=== PATIENT | female | born 1935 | race Caucasian/White ===

== ENCOUNTER 2021-10-01 03:11 | Emergency (ER) | payer MEDICARE, BC ==
[2021-10-01 04:33] LABS: #Basophils 0.1 10x3/uL (0.0-0.2); #Eosinphils 0.1 10x3/uL (0.0-0.5); #Monocytes 0.6 10x3/uL (0.0-1.1); #Neutrophils 4.4 10x3/uL (1.5-8.4); %Basophils 0.8 % (0.0-2.0); %Lymphocytes 19.7 % (18.0-47.0); %Monocytes 8.5 % (0.0-10.0); %Neutrophils 68.7 % (40.0-75.0); Hemoglobin 9.9 g/dL (12.0-15.5); Mean Corpuscular HGB CONC 29.6 g/dL (32.0-36.0); Mean Corpuscular Hemoglobin 24.1 pg (27.0-33.0); Mean Corpuscular Volume 81.3 fl (81.6-98.3); Platelet Count 226 10x3/uL (150-450); RBC Distribution Width 17.3 % (11.5-14.5); Red Blood Cell (RBC) Count 4.11 10x6/uL (3.90-5.03); White Blood Cell (WBC) Count 6.5 10x3/uL (3.5-10.5)
[2021-10-01 04:48] LABS: Elliptocytes SLIGHT = 2-5 cells (100X) (0-1/hpf); Platelet Morphology Comment Appears Adequate; Tear Drops SLIGHT = 2-5 cells (100X) (0-1/hpf)
[2021-10-01 05:01] LABS: ALT (SGPT) 6 U/L (8-55); AST (SGOT) 16 U/L (5-34); Albumin 3.7 g/dL (3.4-4.8); Alkaline Phosphatase 91 U/L (40-110); Anion Gap 13 mmol/L (10-20); BUN (Urea Nitrogen) 14 mg/dL (9.8-20.1); Bilirubin, Total 0.6 mg/dL (0.2-1.2); Calc. Creatinine Clearance 0 mL/min (70-130); Calcium 9.2 mg/dL (7.8-10.44); Carbon Dioxide 26 mmol/L (23-31); Chloride 105 mmol/L (98-107); Globulin 3.5 g/dL (2.4-3.5); Glucose 112 mg/dL (83-110); Potassium 3.6 mmol/L (3.5-5.1); Protein, Total 7.2 g/dL (5.8-8.1); Sodium 140 mmol/L (136-145)
[2021-10-01] MEDS ORDERED: cefTRIAXone\\ROCEPHIN 1 GM VIAL ONE (05:24)
[2021-10-01 16:08] LABS: SARS-CoV-2 PCR by NAA Not Detected (NotDetected)
== END 2021-10-01 07:09 | disposition home or self-care (01) ==
LOC: CSHERS 03:11
DX: J18.9 Pneumonia, unspecified organism (principal); Z20.822 Contact with and (suspected) exposure to COVID-19; I25.10 Atherosclerotic heart disease of native coronary artery without angina pectoris; I25.2 Old myocardial infarction; K21.9 Gastro-esophageal reflux disease without esophagitis; E78.5 Hyperlipidemia, unspecified; I10 Essential (primary) hypertension; J44.9 Chronic obstructive pulmonary disease, unspecified; F17.210 Nicotine dependence, cigarettes, uncomplicated
CPT/HCPCS: 70450; 71045; 80053; 83880; 84484; 85025; 93005; U0003; U0005; 96365; J0696

== ENCOUNTER 2021-10-04 03:56 | Inpatient (IN) | payer MEDICARE, BC ==
[2021-10-04] MEDS ORDERED: methylPREDNISolone Sod Succ/PF 125 MG/2 ML VIAL ONE (04:21)
[2021-10-04] MEDS ORDERED: Nitroglycerin 2% Ointment 1 INCH/1 GM Packet ONE (04:21)
[2021-10-04 04:41] LABS: Actual Bicarbonate (HCO3v) 26 mEq/L (22-28); Base Excess -0.6 mEq/L (-2.0 to +3.0); Calcium, Ionized (venous) 1.13 mmol/L (1.16-1.32); Chloride (VBG) 103 mmol/L (98-106); Hemoglobin (Hb) 10.6 g/dL (11.7-16.1); Puncture Site Other Site; RapidComm Collect By CSUC.CNC; Sodium 138.1 mmol/L (133-146); pH (venous) 7.32 (7.32-7.43)
[2021-10-04 05:05] LABS: ALT (SGPT) 7 U/L (8-55); AST (SGOT) 14 U/L (5-34); Albumin 3.5 g/dL (3.4-4.8); Alkaline Phosphatase 88 U/L (40-110); Anion Gap 12 mmol/L (10-20); BUN (Urea Nitrogen) 15 mg/dL (9.8-20.1); Bilirubin, Total 0.4 mg/dL (0.2-1.2); Calc. Creatinine Clearance 0 mL/min (70-130); Calcium 8.8 mg/dL (7.8-10.44); Carbon Dioxide 27 mmol/L (23-31); Chloride 105 mmol/L (98-107); Globulin 3.3 g/dL (2.4-3.5); Glucose 111 mg/dL (83-110); Potassium 3.5 mmol/L (3.5-5.1); Protein, Total 6.8 g/dL (5.8-8.1); Sodium 140 mmol/L (136-145)
[2021-10-04 05:13] LABS: #Basophils 0.1 10x3/uL (0.0-0.2); #Eosinphils 0.2 10x3/uL (0.0-0.5); #Monocytes 0.6 10x3/uL (0.0-1.1); #Neutrophils 4.2 10x3/uL (1.5-8.4); %Basophils 0.8 % (0.0-2.0); %Eosinophils 3.2 % (0.0-6.0); %Lymphocytes 17.9 % (18.0-47.0); %Monocytes 9.9 % (0.0-10.0); %Neutrophils 67.9 % (40.0-75.0); Hemoglobin 9.5 g/dL (12.0-15.5); Mean Corpuscular HGB CONC 29.4 g/dL (32.0-36.0); Mean Corpuscular Hemoglobin 24.4 pg (27.0-33.0); Mean Platelet Volume 10.8 fl (7.4-10.4); Platelet Count 237 10x3/uL (150-450); RBC Distribution Width 17.5 % (11.5-14.5); Red Blood Cell (RBC) Count 3.89 10x6/uL (3.90-5.03); White Blood Cell (WBC) Count 6.2 10x3/uL (3.5-10.5)
[2021-10-04] MEDS ORDERED: Furosemide 40 MG/4 ML VIAL ONE (06:02)
[2021-10-04 07:08] LABS: SARS-CoV-2 NAA Rapid Test Not Detected (NotDetected)
[2021-10-04] MEDS ORDERED: Acetaminophen 650 MG Suppository PR PRN (08:54)
[2021-10-04] MEDS ORDERED: Bisacodyl 5 MG TAB PO PRN (08:54)
[2021-10-04] MEDS ORDERED: Ondansetron ODT 4 MG TAB PO PRN (08:54)
[2021-10-04] MEDS ORDERED: Loperamide HCl 2 MG CAP PO PRN ×2 (08:54)
[2021-10-04] MEDS ORDERED: Bisacodyl 10 MG SUPP PR PRN (08:54)
[2021-10-04] MEDS ORDERED: Ondansetron PF 4 MG/2 ML Vial IVP PRN (08:54)
[2021-10-04] MEDS ORDERED: Acetaminophen 325 MG TAB PO PRN (08:54)
[2021-10-04] MEDS ORDERED: Enoxaparin Sodium 30 MG/0.3 ML SYRINGE SC SCH (12:00)
[2021-10-04] MEDS ORDERED: Enoxaparin Sodium 30 MG/0.3 ML SYRINGE ONE (12:15)
[2021-10-04] MEDS ORDERED: Piperacillin/Tazobactam 3.375 GM in Sodium Chloride 0.9% 100 ML IVPB SCH (12:15)
[2021-10-04] MEDS: Famotidine/PF 20 mg/2ml Vial SLOW IVP SCH (12:22)
[2021-10-04] MEDS: Furosemide 40 MG/4 ML VIAL SLOW IVP SCH (14:51)
[2021-10-04] MEDS: Piperacillin/Tazobactam 3.375 GM in Sodium Chloride 0.9% 100 ML IVPB SCH (15:42)
[2021-10-04 16:30] LABS: Legionella Urinary Ag Negative (Negative); Strep pneumo Urine Ag NEGATIVE (NEGATIVE)
[2021-10-04] MEDS: HYDROcodone/Acetaminophen 5/325 mg Tablet PO PRN (18:51)
[2021-10-04] MEDS: Atorvastatin Calcium 40 MG TAB PO SCH (20:21)
[2021-10-04] MEDS: Aspirin 81 mg Enteric Coated Tablet PO SCH (20:21)
[2021-10-05] MEDS: Piperacillin/Tazobactam 3.375 GM in Sodium Chloride 0.9% 100 ML IVPB SCH ×3 (00:15→16:18)
[2021-10-05] MEDS: HYDROcodone/Acetaminophen 5/325 mg Tablet PO PRN ×3 (00:15→14:24)
[2021-10-05 05:01] LABS: Anion Gap 15 mmol/L (10-20); BUN (Urea Nitrogen) 19 mg/dL (9.8-20.1); Calc. Creatinine Clearance 21 mL/min (70-130); Carbon Dioxide 29 mmol/L (23-31); Chloride 98 mmol/L (98-107); Sodium 139 mmol/L (136-145)
[2021-10-05 05:02] LABS: ALT (SGPT) Less than 6 U/L (8-55); AST (SGOT) 13 U/L (5-34); Albumin 3.4 g/dL (3.4-4.8); Alkaline Phosphatase 84 U/L (40-110); Bilirubin, Total 0.6 mg/dL (0.2-1.2); Calcium 8.9 mg/dL (7.8-10.44); Globulin 3.7 g/dL (2.4-3.5); Glucose 93 mg/dL (83-110); Protein, Total 7.1 g/dL (5.8-8.1)
[2021-10-05] MEDS: Furosemide 40 MG/4 ML VIAL SLOW IVP SCH ×2 (05:12→14:25)
[2021-10-05 05:22] LABS: #Neutrophils 6.2 10x3/uL (1.5-8.4); %Basophils 0.3 % (0.0-2.0); %Eosinophils 0.1 % (0.0-6.0); %Lymphocytes 15.6 % (18.0-47.0); %Monocytes 11.4 % (0.0-10.0); %Neutrophils 72.3 % (40.0-75.0); Hemoglobin 9.5 g/dL (12.0-15.5); Mean Corpuscular HGB CONC 30.4 g/dL (32.0-36.0); Mean Corpuscular Hemoglobin 24.6 pg (27.0-33.0); Mean Corpuscular Volume 80.8 fl (81.6-98.3); Mean Platelet Volume 11.1 fl (7.4-10.4); Platelet Count 262 10x3/uL (150-450); RBC Distribution Width 17.2 % (11.5-14.5); Red Blood Cell (RBC) Count 3.86 10x6/uL (3.90-5.03); White Blood Cell (WBC) Count 8.6 10x3/uL (3.5-10.5)
[2021-10-05] MEDS ORDERED: Potassium Chloride 20 MEQ TAB PO SCH (06:15)
[2021-10-05] MEDS ORDERED: methylPREDNISolone Sod Succ/PF 40 MG in Sodium Chloride 0.9% 250 ML 250 ML IVPB SCH (09:00)
[2021-10-05] MEDS: methylPREDNISolone Sod Succ 40 MG VIAL IVP SCH (09:42)
[2021-10-05] MEDS ORDERED: Lidocaine 1% PF 5 ML VIAL ONE ×2 (10:37→11:16)
[2021-10-05] MEDS ORDERED: Sodium Bicarbonate 2.5 MEQ/5 ML VIAL ONE (10:38)
[2021-10-05] MEDS: Famotidine/PF 20 mg/2ml Vial SLOW IVP SCH (11:28)
[2021-10-05] MEDS: Cholecalciferol 1,000 UNITS (25 MCG) TAB PO SCH (11:29)
[2021-10-05] MEDS: Cyanocobalamin (Vitamin B-12) 1,000 MCG TAB PO SCH (11:29)
[2021-10-05 11:34] LABS: Fluid, pH - Pleural Fld 7.38 (7.60 - 7.66)
[2021-10-05] MEDS: Ipratropium Bromide 2.5 ml Neb NEB SCH ×2 (12:34→18:04)
[2021-10-05 13:18] LABS: Body Fluid Source Thoracentesis Fluid; Tube # EDTA
[2021-10-05 13:20] LABS: BF Color Yellow; Clarity Hazy (Clear)
[2021-10-05 15:08] LABS: BF Segmented Neutrophils 35 %; Cell Count Non Hematic 20 %; Lymphocytes 45 %
[2021-10-05 19:55] LABS: Pleural Fluid, Protein 3.8 g/dL
[2021-10-05] MEDS: Aspirin 81 mg Enteric Coated Tablet PO SCH (20:40)
[2021-10-05] MEDS: Atorvastatin Calcium 40 MG TAB PO SCH (20:41)
[2021-10-05] MEDS ORDERED: Haloperidol Lactate 5 MG/ML VIAL IM SCH (21:45)
[2021-10-05 22:29] LABS: Actual Bicarbonate (HCO3a) 30.9 mEq/L (22-28); Base Excess (BEa) 6.4 mEq/L (-2.0 to +3.0); CO2 Tension 43.8 mmHg (35.0-45.0); Calcium, Ionized (arterial) 1.13 mmol/L (1.12-1.30); Carboxyhemoglobin (COHb) 0.5 gm% (0.0-3.0); Hemoglobin (Hb) 11.3 g/dL (12.0-16.0); O2 Tension (PaO2), arterial 59.1 mmHg (> 60.0); Potassium - ABG Lab 4.2 mmol/L (3.70-5.30); Puncture Site RBA; pH, Arterial 7.47 (7.35-7.45)
[2021-10-06] MEDS: Piperacillin/Tazobactam 3.375 GM in Sodium Chloride 0.9% 100 ML IVPB SCH ×2 (00:19→07:48)
[2021-10-06] MEDS: HYDROcodone/Acetaminophen 5/325 mg Tablet PO PRN ×3 (02:03→14:09)
[2021-10-06] MEDS: Ipratropium Bromide 2.5 ml Neb NEB SCH ×3 (02:31→14:11)
[2021-10-06 04:14] VITALS: BMI 21.9
[2021-10-06 05:02] LABS: ALT (SGPT) Less than 6 U/L (8-55); AST (SGOT) 15 U/L (5-34); Albumin 3.2 g/dL (3.4-4.8); Alkaline Phosphatase 74 U/L (40-110); Anion Gap 15 mmol/L (10-20); BUN (Urea Nitrogen) 31 mg/dL (9.8-20.1); Bilirubin, Total 0.4 mg/dL (0.2-1.2); Calc. Creatinine Clearance 21 mL/min (70-130); Calcium 8.6 mg/dL (7.8-10.44); Carbon Dioxide 30 mmol/L (23-31); Chloride 98 mmol/L (98-107); Globulin 3.4 g/dL (2.4-3.5); Glucose 90 mg/dL (83-110); Potassium 3.7 mmol/L (3.5-5.1); Protein, Total 6.6 g/dL (5.8-8.1); Sodium 139 mmol/L (136-145)
[2021-10-06 05:52] LABS: #Monocytes 0.8 10x3/uL (0.0-1.1); #Neutrophils 5.4 10x3/uL (1.5-8.4); %Basophils 0.3 % (0.0-2.0); %Eosinophils 0.1 % (0.0-6.0); %Lymphocytes 15.9 % (18.0-47.0); %Monocytes 11.2 % (0.0-10.0); %Neutrophils 72.2 % (40.0-75.0); Hemoglobin 9.2 g/dL (12.0-15.5); Mean Corpuscular HGB CONC 29.9 g/dL (32.0-36.0); Mean Corpuscular Hemoglobin 24.3 pg (27.0-33.0); Mean Corpuscular Volume 81.5 fl (81.6-98.3); Mean Platelet Volume 11.6 fl (7.4-10.4); Platelet Count 283 10x3/uL (150-450); Red Blood Cell (RBC) Count 3.78 10x6/uL (3.90-5.03); White Blood Cell (WBC) Count 7.4 10x3/uL (3.5-10.5)
[2021-10-06] MEDS: Furosemide 40 MG/4 ML VIAL SLOW IVP SCH ×2 (06:26→14:10)
[2021-10-06] MEDS: methylPREDNISolone Sod Succ 40 MG VIAL IVP SCH (07:47)
[2021-10-06] MEDS: Cholecalciferol 1,000 UNITS (25 MCG) TAB PO SCH (12:16)
[2021-10-06] MEDS: Cyanocobalamin (Vitamin B-12) 1,000 MCG TAB PO SCH (12:16)
[2021-10-06] MEDS: Famotidine/PF 20 mg/2ml Vial SLOW IVP SCH (12:16)
[2021-10-06 17:25] VITALS: BP 155/81; TEMP 97.1
[2021-10-06] MEDS ORDERED: Piperacillin/Tazobactam 3.375 GM in Sodium Chloride 0.9% 100 ML IVPB SCH (20:00)
== END 2021-10-06 16:28 | disposition home or self-care (01) | DRG 180 ==
LOC: SUATTDRO 03:56 → CSHERS 03:56 → CSHICU 11:02
PROVIDERS: ADMIT Family Medicine; ATTEND Family Medicine
PROC: 5A09357 Assistance with Respiratory Ventilation, Less than 24 Consecutive Hours, Continuous Positive Airway Pressure (ICD-10-PCS; 2021-10-04)
PROC: 0W9930Z Drainage of Right Pleural Cavity with Drainage Device, Percutaneous Approach (ICD-10-PCS; principal; 2021-10-05)
DX: C34.2 Malignant neoplasm of middle lobe, bronchus or lung (principal); J96.01 Acute respiratory failure with hypoxia; J91.0 Malignant pleural effusion; I50.32 Chronic diastolic (congestive) heart failure; J44.1 Chronic obstructive pulmonary disease with (acute) exacerbation; I25.10 Atherosclerotic heart disease of native coronary artery without angina pectoris; K21.9 Gastro-esophageal reflux disease without esophagitis; E78.5 Hyperlipidemia, unspecified; Z66 Do not resuscitate; I11.0 Hypertensive heart disease with heart failure; M81.0 Age-related osteoporosis without current pathological fracture; M06.9 Rheumatoid arthritis, unspecified; J44.9 Chronic obstructive pulmonary disease, unspecified; Z88.0 Allergy status to penicillin; Z88.8 Allergy status to other drugs, medicaments and biological substances; Z79.899 Other long term (current) drug therapy; Z90.49 Acquired absence of other specified parts of digestive tract; I25.2 Old myocardial infarction; Z95.5 Presence of coronary angioplasty implant and graft; Z90.710 Acquired absence of both cervix and uterus; Z79.82 Long term (current) use of aspirin; Z98.42 Cataract extraction status, left eye; Z98.41 Cataract extraction status, right eye
CPT/HCPCS: 32555; 36415; 36600; 71045; 71250; 80053; 82150; 82465; 82805; 82945; 83605; 83615; 83880; 84145; 84157; 84484; 85025; 87070; 87116; 87205; 87206; 87449; 87899; 88112; 88305; 88341; 88342; 89051; 93005; 93306; 94640; 94660; 94760; 94799; J1630; J1650; J1940; J2543; J2920; J2930; J3490; J7620; S0028; U0002

== ENCOUNTER 2021-10-26 16:24 | Inpatient (IN) | payer MEDICARE, BC ==
[2021-10-26 17:53] LABS: #Eosinphils 0.1 10x3/uL (0.0-0.5); #Monocytes 0.4 10x3/uL (0.0-1.1); #Neutrophils 3.9 10x3/uL (1.5-8.4); %Basophils 0.7 % (0.0-2.0); %Eosinophils 1.6 % (0.0-6.0); %Lymphocytes 19.9 % (18.0-47.0); %Monocytes 7.3 % (0.0-10.0); %Neutrophils 70.3 % (40.0-75.0); Hemoglobin 10.3 g/dL (12.0-15.5); Mean Corpuscular HGB CONC 29.3 g/dL (32.0-36.0); Mean Corpuscular Hemoglobin 25.2 pg (27.0-33.0); Mean Corpuscular Volume 86.1 fl (81.6-98.3); Platelet Count 158 10x3/uL (150-450); RBC Distribution Width 16.6 % (11.5-14.5); Red Blood Cell (RBC) Count 4.09 10x6/uL (3.90-5.03); White Blood Cell (WBC) Count 5.5 10x3/uL (3.5-10.5)
[2021-10-26 17:55] LABS: ALT (SGPT) 17 U/L (8-55); AST (SGOT) 23 U/L (5-34); Albumin 3.1 g/dL (3.4-4.8); Alkaline Phosphatase 136 U/L (40-110); Anion Gap 14 mmol/L (10-20); BUN (Urea Nitrogen) 9 mg/dL (9.8-20.1); Bilirubin, Total 0.5 mg/dL (0.2-1.2); Calc. Creatinine Clearance 0 mL/min (70-130); Calcium 8.7 mg/dL (7.8-10.44); Carbon Dioxide 26 mmol/L (23-31); Chloride 104 mmol/L (98-107); Globulin 3.1 g/dL (2.4-3.5); Glucose 127 mg/dL (83-110); Potassium 4.1 mmol/L (3.5-5.1); Protein, Total 6.2 g/dL (5.8-8.1); Sodium 140 mmol/L (136-145)
[2021-10-26] MEDS ORDERED: Furosemide 40 MG/4 ML VIAL ONE (18:27)
[2021-10-26] MEDS ORDERED: Furosemide 100 MG/10 ML VIAL ONE (18:29)
[2021-10-26 19:07] LABS: Anisocytosis SLIGHT = 6-15 cells (100X) (0-5/hpf); Hypochromia SLIGHT = 6-15 cells (100X) (0-5/hpf); Ovalocytes SLIGHT = 2-5 cells (100X) (0-1/hpf); Stomatocytes SLIGHT = 2-5 cells (100X) (0-1/hpf)
[2021-10-26 19:08] LABS: Platelet Morphology Comment Appears Adequate
[2021-10-26 19:10] LABS: SARS-CoV-2 NAA Rapid Test Not Detected (NotDetected)
[2021-10-26] MEDS ORDERED: Nitroglycerin 2% Ointment 1 INCH/1 GM Packet ONE (19:15)
[2021-10-26] MEDS ORDERED: Ventolin HFA Inhaler 60 PUFF INHALER INH PRN (19:55)
[2021-10-26] MEDS ORDERED: Ipratropium Oral Inhaler INH PRN (19:55)
[2021-10-26] MEDS ORDERED: Acetaminophen 325 MG TAB PO PRN (19:56)
[2021-10-26] MEDS ORDERED: Ondansetron PF 4 MG/2 ML Vial IVP PRN (19:56)
[2021-10-26] MEDS ORDERED: Ondansetron ODT 4 MG TAB PO PRN (19:56)
[2021-10-26] MEDS ORDERED: HYDROcodone/Acetaminophen 5/325 mg Tablet ONE (20:11)
[2021-10-26] MEDS: Aspirin 81 mg Enteric Coated Tablet PO SCH (22:24)
[2021-10-26] MEDS: Atorvastatin Calcium 40 MG TAB PO SCH ×2 (22:24→22:28)
[2021-10-27] MEDS: Ipratropium Bromide 2.5 ml Neb NEB SCH ×4 (00:33→18:51)
[2021-10-27] MEDS: HYDROcodone/Acetaminophen 5/325 mg Tablet PO PRN ×2 (03:10→17:03)
[2021-10-27 05:34] LABS: #Monocytes 0.1 10x3/uL (0.0-1.1); #Neutrophils 2.7 10x3/uL (1.5-8.4); %Lymphocytes 12.7 % (18.0-47.0); %Monocytes 3.7 % (0.0-10.0); %Neutrophils 83.3 % (40.0-75.0); Hemoglobin 9.8 g/dL (12.0-15.5); Mean Corpuscular HGB CONC 29.4 g/dL (32.0-36.0); Mean Corpuscular Hemoglobin 24.9 pg (27.0-33.0); Mean Corpuscular Volume 84.5 fl (81.6-98.3); Mean Platelet Volume 12.2 fl (7.4-10.4); Platelet Count 158 10x3/uL (150-450); RBC Distribution Width 16.2 % (11.5-14.5); Red Blood Cell (RBC) Count 3.94 10x6/uL (3.90-5.03); White Blood Cell (WBC) Count 3.2 10x3/uL (3.5-10.5)
[2021-10-27 05:36] LABS: ALT (SGPT) 14 U/L (8-55); AST (SGOT) 17 U/L (5-34); Albumin 3.1 g/dL (3.4-4.8); Alkaline Phosphatase 127 U/L (40-110); Anion Gap 13 mmol/L (10-20); BUN (Urea Nitrogen) 12 mg/dL (9.8-20.1); Bilirubin, Total 0.4 mg/dL (0.2-1.2); Calc. Creatinine Clearance 26 mL/min (70-130); Calcium 8.8 mg/dL (7.8-10.44); Carbon Dioxide 30 mmol/L (23-31); Chloride 97 mmol/L (98-107); Globulin 3.3 g/dL (2.4-3.5); Glucose 148 mg/dL (83-110); Magnesium 1.7 mg/dL (1.6-2.6); Potassium 3.1 mmol/L (3.5-5.1); Protein, Total 6.4 g/dL (5.8-8.1); Sodium 137 mmol/L (136-145)
[2021-10-27 06:15] LABS: Troponin I 0.012 ng/mL (< 0.028)
[2021-10-27] MEDS ORDERED: Potassium Chloride 20 MEQ TAB PO SCH ×2 (07:00→13:00)
[2021-10-27 07:02] LABS: Anisocytosis SLIGHT = 6-15 cells (100X) (0-5/hpf); Hypochromia SLIGHT = 6-15 cells (100X) (0-5/hpf)
[2021-10-27] MEDS ORDERED: predniSONE 20 MG TAB PO SCH (08:00)
[2021-10-27] MEDS ORDERED: Enoxaparin Sodium 40 MG/0.4 ML SYRINGE SC SCH (09:00)
[2021-10-27] MEDS: Cyanocobalamin (Vitamin B-12) 1,000 MCG TAB PO SCH (11:55)
[2021-10-27] MEDS: Cholecalciferol 1,000 UNITS (25 MCG) TAB PO SCH (11:55)
[2021-10-27] MEDS: Magnesium 2 GM/50 ML 2 GM in Premix Bag 1 BAG IVPB SCH ×5 (13:11→21:25)
[2021-10-27] MEDS ORDERED: Furosemide 40 MG/4 ML VIAL SLOW IVP SCH (17:00)
[2021-10-27] MEDS: Aspirin 81 mg Enteric Coated Tablet PO SCH (20:07)
[2021-10-27] MEDS: Atorvastatin Calcium 40 MG TAB PO SCH (20:08)
[2021-10-27] MEDS ORDERED: Famotidine 20 MG TAB PO SCH ×2 (21:00)
[2021-10-28] MEDS: Ipratropium Bromide 2.5 ml Neb NEB SCH ×4 (00:18→18:57)
[2021-10-28 05:16] LABS: #Monocytes 0.5 10x3/uL (0.0-1.1); #Neutrophils 7.6 10x3/uL (1.5-8.4); %Basophils 0.1 % (0.0-2.0); %Lymphocytes 10.9 % (18.0-47.0); %Monocytes 5.4 % (0.0-10.0); %Neutrophils 83.3 % (40.0-75.0); Hemoglobin 11.1 g/dL (12.0-15.5); Mean Corpuscular HGB CONC 30.2 g/dL (32.0-36.0); Mean Corpuscular Hemoglobin 24.9 pg (27.0-33.0); Mean Corpuscular Volume 82.7 fl (81.6-98.3); Mean Platelet Volume 11.7 fl (7.4-10.4); Platelet Count 167 10x3/uL (150-450); RBC Distribution Width 17.1 % (11.5-14.5); Red Blood Cell (RBC) Count 4.45 10x6/uL (3.90-5.03); White Blood Cell (WBC) Count 9.1 10x3/uL (3.5-10.5)
[2021-10-28 07:16] LABS: Anion Gap 16 mmol/L (10-20); BUN (Urea Nitrogen) 19 mg/dL (9.8-20.1); Calc. Creatinine Clearance 24 mL/min (70-130); Carbon Dioxide 30 mmol/L (23-31); Chloride 99 mmol/L (98-107); Glucose 109 mg/dL (83-110); Magnesium 3.1 mg/dL (1.6-2.6); Potassium 5.1 mmol/L (3.5-5.1); Sodium 140 mmol/L (136-145)
[2021-10-28] MEDS ORDERED: hydrALAZINE 20 MG/ML VIAL SLOW IVP PRN (08:41)
[2021-10-28] MEDS: Enoxaparin Sodium 30 MG/0.3 ML SYRINGE SC SCH (09:16)
[2021-10-28] MEDS: Cholecalciferol 1,000 UNITS (25 MCG) TAB PO SCH (13:10)
[2021-10-28] MEDS: Cyanocobalamin (Vitamin B-12) 1,000 MCG TAB PO SCH (13:10)
[2021-10-28] MEDS ORDERED: Furosemide 40 MG/4 ML VIAL SLOW IVP SCH (16:00)
[2021-10-28] MEDS: HYDROcodone/Acetaminophen 5/325 mg Tablet PO PRN (19:34)
[2021-10-28] MEDS ORDERED: Bismuth Subs 17.5 mg/mL Susp PO SCH (21:15)
[2021-10-28] MEDS ORDERED: Pepto Bismol Chew TAB PO SCH (21:30)
[2021-10-28] MEDS: Atorvastatin Calcium 40 MG TAB PO SCH (22:16)
[2021-10-28] MEDS: Aspirin 81 mg Enteric Coated Tablet PO SCH (22:18)
[2021-10-29] MEDS: Ipratropium Bromide 2.5 ml Neb NEB SCH ×4 (00:38→18:40)
[2021-10-29 04:07] LABS: #Eosinphils 0.1 10x3/uL (0.0-0.5); #Monocytes 0.4 10x3/uL (0.0-1.1); #Neutrophils 3.7 10x3/uL (1.5-8.4); %Basophils 0.2 % (0.0-2.0); %Eosinophils 1.8 % (0.0-6.0); %Lymphocytes 19.1 % (18.0-47.0); %Monocytes 7.6 % (0.0-10.0); %Neutrophils 71.1 % (40.0-75.0); Hemoglobin 10.1 g/dL (12.0-15.5); Mean Corpuscular HGB CONC 30.1 g/dL (32.0-36.0); Mean Corpuscular Hemoglobin 25.1 pg (27.0-33.0); Mean Corpuscular Volume 83.6 fl (81.6-98.3); Mean Platelet Volume 11.1 fl (7.4-10.4); Platelet Count 160 10x3/uL (150-450); RBC Distribution Width 17.1 % (11.5-14.5); Red Blood Cell (RBC) Count 4.02 10x6/uL (3.90-5.03); White Blood Cell (WBC) Count 5.1 10x3/uL (3.5-10.5)
[2021-10-29 04:23] LABS: Anion Gap 15 mmol/L (10-20); BUN (Urea Nitrogen) 23 mg/dL (9.8-20.1); Calc. Creatinine Clearance 24 mL/min (70-130); Calcium 8.7 mg/dL (7.8-10.44); Carbon Dioxide 31 mmol/L (23-31); Chloride 96 mmol/L (98-107); Glucose 101 mg/dL (83-110); Magnesium 2.4 mg/dL (1.6-2.6); Phosphorus 4.2 mg/dL (2.3-4.7); Potassium 3.7 mmol/L (3.5-5.1); Sodium 138 mmol/L (136-145)
[2021-10-29] MEDS: HYDROcodone/Acetaminophen 5/325 mg Tablet PO PRN ×2 (05:49→14:10)
[2021-10-29] MEDS: Enoxaparin Sodium 30 MG/0.3 ML SYRINGE SC SCH (08:15)
[2021-10-29] MEDS: Amlodipine 5 MG TAB PO SCH (08:16)
[2021-10-29] MEDS: Furosemide 40 MG TAB PO SCH (08:18)
[2021-10-29] MEDS: Potassium Chloride 20 MEQ TAB PO SCH (08:19)
[2021-10-29] MEDS: Cholecalciferol 1,000 UNITS (25 MCG) TAB PO SCH (14:04)
[2021-10-29] MEDS: Cyanocobalamin (Vitamin B-12) 1,000 MCG TAB PO SCH (14:06)
[2021-10-29] MEDS: Atorvastatin Calcium 40 MG TAB PO SCH (21:34)
[2021-10-29] MEDS: Aspirin 81 mg Enteric Coated Tablet PO SCH (21:35)
[2021-10-30] MEDS: Ipratropium Bromide 2.5 ml Neb NEB SCH ×4 (01:00→18:57)
[2021-10-30 04:04] LABS: #Eosinphils 0.2 10x3/uL (0.0-0.5); #Monocytes 0.4 10x3/uL (0.0-1.1); #Neutrophils 2.6 10x3/uL (1.5-8.4); %Basophils 0.7 % (0.0-2.0); %Eosinophils 3.3 % (0.0-6.0); %Lymphocytes 31.2 % (18.0-47.0); %Neutrophils 56.6 % (40.0-75.0); Hemoglobin 10.3 g/dL (12.0-15.5); Mean Corpuscular HGB CONC 29.3 g/dL (32.0-36.0); Mean Corpuscular Hemoglobin 25.2 pg (27.0-33.0); Mean Platelet Volume 11.1 fl (7.4-10.4); Platelet Count 172 10x3/uL (150-450); RBC Distribution Width 16.8 % (11.5-14.5); Red Blood Cell (RBC) Count 4.08 10x6/uL (3.90-5.03); White Blood Cell (WBC) Count 4.6 10x3/uL (3.5-10.5)
[2021-10-30 04:09] LABS: Anion Gap 13 mmol/L (10-20); BUN (Urea Nitrogen) 22 mg/dL (9.8-20.1); Calc. Creatinine Clearance 22 mL/min (70-130); Calcium 8.7 mg/dL (7.8-10.44); Carbon Dioxide 33 mmol/L (23-31); Chloride 96 mmol/L (98-107); Glucose 94 mg/dL (83-110); Magnesium 2.2 mg/dL (1.6-2.6); Phosphorus 4.8 mg/dL (2.3-4.7); Potassium 3.9 mmol/L (3.5-5.1); Sodium 138 mmol/L (136-145)
[2021-10-30 04:35] LABS: Platelet Morphology Comment Appears Adequate; RBC Morphology Normal
[2021-10-30] MEDS: Furosemide 40 MG TAB PO SCH (06:43)
[2021-10-30] MEDS ORDERED: Enoxaparin Sodium 30 MG/0.3 ML SYRINGE ONE (08:22)
[2021-10-30] MEDS: Amlodipine 5 MG TAB PO SCH (08:30)
[2021-10-30] MEDS: Potassium Chloride 20 MEQ TAB PO SCH (08:31)
[2021-10-30] MEDS: HYDROcodone/Acetaminophen 5/325 mg Tablet PO PRN ×3 (08:32→21:49)
[2021-10-30] MEDS: Enoxaparin Sodium 30 MG/0.3 ML SYRINGE SC SCH (08:32)
[2021-10-30] MEDS: Cyanocobalamin (Vitamin B-12) 1,000 MCG TAB PO SCH (13:31)
[2021-10-30] MEDS: Cholecalciferol 1,000 UNITS (25 MCG) TAB PO SCH (13:32)
[2021-10-30] MEDS: Atorvastatin Calcium 40 MG TAB PO SCH (21:42)
[2021-10-30] MEDS: Aspirin 81 mg Enteric Coated Tablet PO SCH (21:42)
[2021-10-31] MEDS: Ipratropium Bromide 2.5 ml Neb NEB SCH ×2 (01:00→07:53)
[2021-10-31 04:51] LABS: #Eosinphils 0.2 10x3/uL (0.0-0.5); #Monocytes 0.6 10x3/uL (0.0-1.1); #Neutrophils 2.7 10x3/uL (1.5-8.4); %Basophils 0.4 % (0.0-2.0); %Eosinophils 3.4 % (0.0-6.0); %Lymphocytes 30.7 % (18.0-47.0); %Monocytes 11.2 % (0.0-10.0); %Neutrophils 54.1 % (40.0-75.0); Hemoglobin 9.2 g/dL (12.0-15.5); Mean Corpuscular HGB CONC 28.5 g/dL (32.0-36.0); Mean Corpuscular Hemoglobin 24.9 pg (27.0-33.0); Mean Corpuscular Volume 87.5 fl (81.6-98.3); Mean Platelet Volume 11.3 fl (7.4-10.4); Platelet Count 168 10x3/uL (150-450); RBC Distribution Width 16.6 % (11.5-14.5); Red Blood Cell (RBC) Count 3.69 10x6/uL (3.90-5.03)
[2021-10-31 05:03] LABS: Anion Gap 10 mmol/L (10-20); BUN (Urea Nitrogen) 23 mg/dL (9.8-20.1); Calc. Creatinine Clearance 20 mL/min (70-130); Calcium 8.6 mg/dL (7.8-10.44); Carbon Dioxide 34 mmol/L (23-31); Chloride 97 mmol/L (98-107); Glucose 93 mg/dL (83-110); Phosphorus 3.9 mg/dL (2.3-4.7); Potassium 4.2 mmol/L (3.5-5.1); Sodium 137 mmol/L (136-145)
[2021-10-31 05:33] LABS: Elliptocytes SLIGHT = 2-5 cells (100X) (0-1/hpf); Hypochromia SLIGHT = 6-15 cells (100X) (0-5/hpf); Platelet Morphology Comment Appears Adequate; Stomatocytes SLIGHT = 2-5 cells (100X) (0-1/hpf)
[2021-10-31] MEDS: Furosemide 40 MG TAB PO SCH (06:36)
[2021-10-31] MEDS: HYDROcodone/Acetaminophen 5/325 mg Tablet PO PRN (06:40)
[2021-10-31 08:05] VITALS: BP 118/58; TEMP 97.7
[2021-10-31] MEDS: Potassium Chloride 20 MEQ TAB PO SCH (11:20)
[2021-10-31] MEDS: Cholecalciferol 1,000 UNITS (25 MCG) TAB PO SCH (11:20)
[2021-10-31] MEDS: Cyanocobalamin (Vitamin B-12) 1,000 MCG TAB PO SCH (11:20)
[2021-10-31] MEDS: Amlodipine 5 MG TAB PO SCH (11:21)
[2021-10-31] MEDS: Enoxaparin Sodium 30 MG/0.3 ML SYRINGE SC SCH (11:22)
== END 2021-10-31 11:30 | disposition home or self-care (01) | DRG 291 ==
LOC: CSHERS 16:24 → CSHTELE 16:25 → OBSVTOIN 16:25
PROVIDERS: ADMIT Internal Medicine; ATTEND Family Medicine
DX: I11.0 Hypertensive heart disease with heart failure (principal); I50.33 Acute on chronic diastolic (congestive) heart failure; J96.21 Acute and chronic respiratory failure with hypoxia; Z20.822 Contact with and (suspected) exposure to COVID-19; I73.00 Raynaud's syndrome without gangrene; I25.10 Atherosclerotic heart disease of native coronary artery without angina pectoris; F32.A Depression, unspecified; K21.9 Gastro-esophageal reflux disease without esophagitis; E78.5 Hyperlipidemia, unspecified; M81.0 Age-related osteoporosis without current pathological fracture; M19.90 Unspecified osteoarthritis, unspecified site; M06.9 Rheumatoid arthritis, unspecified; J44.9 Chronic obstructive pulmonary disease, unspecified; F17.200 Nicotine dependence, unspecified, uncomplicated; I25.2 Old myocardial infarction; Z95.5 Presence of coronary angioplasty implant and graft; Z88.0 Allergy status to penicillin; Z88.8 Allergy status to other drugs, medicaments and biological substances; Z79.82 Long term (current) use of aspirin; Z79.899 Other long term (current) drug therapy; Z90.49 Acquired absence of other specified parts of digestive tract; Z90.710 Acquired absence of both cervix and uterus; Z85.118 Personal history of other malignant neoplasm of bronchus and lung; Z92.3 Personal history of irradiation
CPT/HCPCS: 36415; 71045; 80048; 80053; 83605; 83735; 83880; 84100; 84484; 85025; 93005; 94640; 94760; 94762; 96374; 97139; J0360; J1650; J1940; J2405; J3475; J7512; U0002

== ENCOUNTER 2022-01-26 11:27 | Observation (INO) | payer MEDICARE, BC ==
[2022-01-26 12:07] LABS: #Basophils 0.1 10x3/uL (0.0-0.2); #Eosinphils 0.1 10x3/uL (0.0-0.5); #Monocytes 0.7 10x3/uL (0.0-1.1); #Neutrophils 5.6 10x3/uL (1.5-8.4); %Basophils 0.7 % (0.0-2.0); %Eosinophils 1.7 % (0.0-6.0); %Lymphocytes 13.7 % (18.0-47.0); %Monocytes 9.4 % (0.0-10.0); %Neutrophils 74.2 % (40.0-75.0); Hemoglobin 11.8 g/dL (12.0-15.5); Mean Corpuscular HGB CONC 30.8 g/dL (32.0-36.0); Mean Corpuscular Hemoglobin 27.1 pg (27.0-33.0); Mean Corpuscular Volume 87.8 fl (81.6-98.3); Platelet Count 254 10x3/uL (150-450); RBC Distribution Width 14.9 % (11.5-14.5); Red Blood Cell (RBC) Count 4.36 10x6/uL (3.90-5.03); White Blood Cell (WBC) Count 7.5 10x3/uL (3.5-10.5)
[2022-01-26 12:23] LABS: ALT (SGPT) 6 U/L (8-55); AST (SGOT) 21 U/L (5-34); Albumin 3.4 g/dL (3.4-4.8); Alkaline Phosphatase 132 U/L (40-110); Anion Gap 18 mmol/L (10-20); BUN (Urea Nitrogen) 33 mg/dL (9.8-20.1); Bilirubin, Total 0.4 mg/dL (0.2-1.2); Calc. Creatinine Clearance 0 mL/min (70-130); Calcium 9.4 mg/dL (7.8-10.44); Carbon Dioxide 31 mmol/L (23-31); Chloride 92 mmol/L (98-107); Glucose 122 mg/dL (83-110); Potassium 3.6 mmol/L (3.5-5.1); Protein, Total 7.4 g/dL (5.8-8.1); Sodium 137 mmol/L (136-145)
[2022-01-26 14:21] LABS: SARS-CoV-2 NAA Rapid Test Not Detected (NotDetected)
[2022-01-26 15:45] LABS: Troponin I 0.043 ng/mL (< 0.028)
[2022-01-26] MEDS ORDERED: Ondansetron PF 4 MG/2 ML Vial IVP PRN (15:47)
[2022-01-26] MEDS ORDERED: Acetaminophen 325 MG TAB PO PRN (15:47)
[2022-01-26 16:11] VITALS: BMI 17.2
[2022-01-26 18:07] LABS: Troponin I 0.044 ng/mL (< 0.028)
[2022-01-26] MEDS: HYDROcodone/Acetaminophen 5/325 mg Tablet PO PRN (18:30)
[2022-01-26] MEDS: Aspirin 81 mg Enteric Coated Tablet PO SCH (20:34)
[2022-01-26] MEDS: Atorvastatin Calcium 40 MG TAB PO SCH (20:34)
[2022-01-27] MEDS: HYDROcodone/Acetaminophen 5/325 mg Tablet PO PRN ×3 (00:46→23:04)
[2022-01-27 04:42] LABS: #Eosinphils 0.1 10x3/uL (0.0-0.5); #Monocytes 0.7 10x3/uL (0.0-1.1); #Neutrophils 4.3 10x3/uL (1.5-8.4); %Basophils 0.2 % (0.0-2.0); %Eosinophils 1.1 % (0.0-6.0); %Lymphocytes 16.5 % (18.0-47.0); %Monocytes 11.7 % (0.0-10.0); %Neutrophils 70.2 % (40.0-75.0); Hemoglobin 10.5 g/dL (12.0-15.5); Mean Corpuscular HGB CONC 31.1 g/dL (32.0-36.0); Mean Corpuscular Hemoglobin 27.4 pg (27.0-33.0); Mean Corpuscular Volume 88.3 fl (81.6-98.3); Mean Platelet Volume 11.3 fl (7.4-10.4); Platelet Count 208 10x3/uL (150-450); RBC Distribution Width 14.8 % (11.5-14.5); Red Blood Cell (RBC) Count 3.83 10x6/uL (3.90-5.03); White Blood Cell (WBC) Count 6.1 10x3/uL (3.5-10.5)
[2022-01-27 04:54] LABS: Anion Gap 15 mmol/L (10-20); BUN (Urea Nitrogen) 35 mg/dL (9.8-20.1); Calc. Creatinine Clearance 16 mL/min (70-130); Carbon Dioxide 32 mmol/L (23-31); Chloride 95 mmol/L (98-107); Glucose 104 mg/dL (83-110); Sodium 139 mmol/L (136-145)
[2022-01-27] MEDS ORDERED: Enoxaparin Sodium 40 MG/0.4 ML SYRINGE SC SCH (09:00)
[2022-01-27] MEDS ORDERED: Potassium Chloride 20 MEQ TAB PO SCH (10:00)
[2022-01-27] MEDS ORDERED: Lidocaine 1% PF 5 ML VIAL ONE (13:04)
[2022-01-27] MEDS ORDERED: Sodium Bicarbonate 2.5 MEQ/5 ML VIAL ONE (13:04)
[2022-01-27] MEDS ORDERED: Morphine 2 MG/ML VIAL SLOW IVP SCH (14:00)
[2022-01-27 15:28] LABS: BF Color Red; Body Fluid Source Thoracentesis Fluid; Clarity Cloudy/Turbid (Clear); Tube # EDTA
[2022-01-27 15:30] LABS: BF Segmented Neutrophils 8 %; Lymphocytes 75 %
[2022-01-27 15:31] LABS: Cell Count Non Hematic 13 %; Eosinophils 4 %
[2022-01-27 20:40] LABS: Fluid, Protein 4.4 g/dL (Not Available)
[2022-01-27] MEDS: Atorvastatin Calcium 40 MG TAB PO SCH (20:57)
[2022-01-27] MEDS: Aspirin 81 mg Enteric Coated Tablet PO SCH (20:57)
[2022-01-28 04:54] LABS: Anion Gap 18 mmol/L (10-20); BUN (Urea Nitrogen) 31 mg/dL (9.8-20.1); Calc. Creatinine Clearance 20 mL/min (70-130); Calcium 8.9 mg/dL (7.8-10.44); Carbon Dioxide 26 mmol/L (23-31); Chloride 97 mmol/L (98-107); Glucose 108 mg/dL (83-110); Potassium 3.6 mmol/L (3.5-5.1); Sodium 137 mmol/L (136-145)
[2022-01-28 04:56] LABS: #Eosinphils 0.1 10x3/uL (0.0-0.5); #Monocytes 0.7 10x3/uL (0.0-1.1); #Neutrophils 4.7 10x3/uL (1.5-8.4); %Basophils 0.5 % (0.0-2.0); %Eosinophils 1.1 % (0.0-6.0); %Lymphocytes 14.5 % (18.0-47.0); %Monocytes 11.1 % (0.0-10.0); %Neutrophils 72.5 % (40.0-75.0); Hemoglobin 10.2 g/dL (12.0-15.5); Mean Corpuscular HGB CONC 31.8 g/dL (32.0-36.0); Mean Corpuscular Hemoglobin 27.8 pg (27.0-33.0); Mean Corpuscular Volume 87.5 fl (81.6-98.3); Mean Platelet Volume 11.3 fl (7.4-10.4); Platelet Count 202 10x3/uL (150-450); RBC Distribution Width 14.9 % (11.5-14.5); Red Blood Cell (RBC) Count 3.67 10x6/uL (3.90-5.03); White Blood Cell (WBC) Count 6.5 10x3/uL (3.5-10.5)
[2022-01-28] MEDS ORDERED: Enoxaparin Sodium 30 MG/0.3 ML SYRINGE ONE (08:09)
[2022-01-28] MEDS: HYDROcodone/Acetaminophen 5/325 mg Tablet PO PRN ×2 (08:15→13:33)
[2022-01-28] MEDS ORDERED: Enoxaparin Sodium 30 MG/0.3 ML SYRINGE SC SCH (09:00)
[2022-01-28 16:02] VITALS: BP 123/60; TEMP 98.4
== END 2022-01-28 14:15 | disposition home or self-care (01) ==
LOC: CSHERS 11:27 → CSHTELE 15:48
PROVIDERS: ADMIT Internal Medicine; ATTEND Internal Medicine
DX: C34.91 Malignant neoplasm of unspecified part of right bronchus or lung (principal); J91.0 Malignant pleural effusion; I13.0 Hypertensive heart and chronic kidney disease with heart failure and stage 1 through stage 4 chronic kidney disease, or unspecified chronic kidney disease; I50.32 Chronic diastolic (congestive) heart failure; N18.9 Chronic kidney disease, unspecified; J44.9 Chronic obstructive pulmonary disease, unspecified; F17.210 Nicotine dependence, cigarettes, uncomplicated; I25.10 Atherosclerotic heart disease of native coronary artery without angina pectoris; Z79.82 Long term (current) use of aspirin; Z79.899 Other long term (current) drug therapy; Z99.81 Dependence on supplemental oxygen; Z20.822 Contact with and (suspected) exposure to COVID-19
CPT/HCPCS: 32555; 71045 ×2; 71046; 80048 ×2; 80053; 82042; 82553; 83615; 83880; 84157; 84484 ×2; 85025 ×3; 89051; 93005; 94640 ×3; 94760 ×3; 96372; 96374; 99285; G0378 ×4; J2270; U0002; 36415; 88112; 88305; J1650; J7620